=== PATIENT | male | born 1975 | race Two or more races ===

== ENCOUNTER 2017-03-28 18:15 | Emergency (ER) | payer MEDICAID ==
[~2017-03-28] VITALS: Ht 167.6 cm; Wt 81.6 kg
[2017-03-28 18:16] VITALS: BP 154/98
[2017-03-28] MEDS ORDERED: IBUPROFEN 400 MG TABLET ONE (19:18)
[2017-03-28] MEDS: IBUPROFEN 400 MG TABLET PO ONE (19:20)
== END 2017-03-28 20:07 | disposition home or self-care (01) ==
LOC: ER 18:18
DX: S30.0XXA Contusion of lower back and pelvis, initial encounter (principal); S90.31XA Contusion of right foot, initial encounter; V43.52XA Car driver injured in collision with other type car in traffic accident, initial encounter; Y93.89 Activity, other specified; Y92.488 Other paved roadways as the place of occurrence of the external cause; Y99.8 Other external cause status
CPT/HCPCS: 72131-TC; A4606; Z7610